=== PATIENT | female | born 1995 | race Caucasian/White ===

== ENCOUNTER 2020-08-16 17:01 | Emergency (ER) | payer OTHER ==
[~2020-08-16] VITALS: Ht 162.6 cm; Wt 88.5 kg
[2020-08-16 17:12] VITALS: BP 119/77
[2020-08-16] MEDS ORDERED: OMEPRAZOLE 20 M20 M1 PO (17:15)
[2020-08-16] MEDS ORDERED: NORCO 5-325 TA1 EAC2 PO (17:41)
[2020-08-16] MEDS ORDERED: IBUPROFEN 800800 M1 PO (17:41)
[2020-08-16] MEDS ORDERED: CLEOCIN HCL300 MG PO (17:41)
== END 2020-08-16 18:00 | disposition home or self-care (01) ==
LOC: M.ERS 17:01
DX: K02.9 Dental caries, unspecified (principal); Z79.899 Other long term (current) drug therapy; Z88.1 Allergy status to other antibiotic agents

== ENCOUNTER 2021-03-01 09:09 | Emergency (ER) | payer OTHER ==
[~2021-03-01] VITALS: Ht 162.6 cm; Wt 86.2 kg
[~2021-03-01 09:09] MED LIST: CLEOCIN HCL300 MG PO; IBUPROFEN 800800 M1 PO; NORCO 5-325 TA1 EAC2 PO; OMEPRAZOLE 20 M20 M1 PO
[2021-03-01] MEDS ORDERED: SUPER THERAVIT1 EACH PO (09:24)
[2021-03-01] MEDS ORDERED: LEVOFLOXACIN750 MG PO (09:49)
[2021-03-01 09:55] VITALS: BP 111/75
== END 2021-03-01 09:56 | disposition home or self-care (01) ==
LOC: M.ERS 09:09
DX: H66.91 Otitis media, unspecified, right ear (principal); Z88.1 Allergy status to other antibiotic agents

== ENCOUNTER 2021-03-04 19:31 | Emergency (ER) | payer OTHER ==
[~2021-03-04] VITALS: Ht 162.6 cm; Wt 86.2 kg
[~2021-03-04 19:31] MED LIST changes: +LEVOFLOXACIN750 MG PO; +SUPER THERAVIT1 EACH PO
[2021-03-04 20:35] VITALS: BP 124/75
== END 2021-03-04 20:35 | disposition home or self-care (01) ==
LOC: M.ERS 19:31
DX: L24.9 Irritant contact dermatitis, unspecified cause (principal); Z88.1 Allergy status to other antibiotic agents